=== PATIENT | male | born 1965 | race Caucasian/White ===

== ENCOUNTER 2023-05-05 05:23 | Observation (INO) | payer OTHER ==
[2023-04-29 16:10] VITALS: BMI 26.4
[~2023-05-05 05:23] MED LIST: BUPIVACAINE HCL/PF 0.5% (5 MG/ML) 30 ML VIAL IJ ONE
[2023-05-05] MEDS ORDERED: GENTAMICIN SO4 80 MG/2 ML VIAL ONE ×2 (12:27→13:35)
[2023-05-05] MEDS ORDERED: VANCOMYCIN 1,000 MG VIAL (RESTRICTED TO ID ONLY) ONE (12:28)
[2023-05-05] MEDS ORDERED: AMPHOTERICIN B LIPOSOMAL IVPB ONE (13:00)
[2023-05-05] MEDS ORDERED: SODIUM CHLORIDE IVPB ONE (13:00)
[2023-05-05] MEDS ORDERED: GENTAMICIN SO4 80 MG/2 ML VIAL IVPB ONE (13:20)
[2023-05-05] MEDS ORDERED: VANCOMYCIN 1,000 MG VIAL (RESTRICTED TO ID ONLY) IVPB ONE (13:35)
[2023-05-05] MEDS ORDERED: ceFAZolin SODIUM 1 GM VIAL IVPB ONE (14:33)
[2023-05-05] MEDS ORDERED: MIDAZOLAM HCL 2 MG/2 ML SINGLE DOSE VIAL ONE (15:07)
[2023-05-05] MEDS ORDERED: PROPOFOL 40 ML ONE (15:07)
[2023-05-05] MEDS ORDERED: SUCCINYLCHOLINE CHLORIDE 200 MG/10 ML SYRINGE ONE (15:07)
[2023-05-05] MEDS ORDERED: HYDROmorphone HCl 2 MG/ML VIAL ONE (15:27)
[2023-05-05] MEDS ORDERED: BUPIVACAINE HCL/PF 0.25% (2.5MG/ML) 10 ML VIAL ONE (15:27)
[2023-05-05] MEDS ORDERED: LIDOCAINE HCL 2% (20ML MULTI-DOSE VIAL) ONE (15:28)
[2023-05-05] MEDS ORDERED: DEXAMETHASONE SOD PHOSPHATE 4 MG/1 ML VIAL ONE (15:37)
[2023-05-05] MEDS ORDERED: ONDANSETRON 4 MG/2 ML VIAL ONE (15:38)
[2023-05-05] MEDS ORDERED: KETAMINE HCL 500 MG/10 ML VIAL ONE (16:20)
[2023-05-05] MEDS ORDERED: ACETAMINOPHEN INJECTION 100 ML IVPB ONE (16:23)
[2023-05-05] MEDS ORDERED: LIDOCAINE HCL/PF 2% SDV 5ML VIAL INF ONE (16:35)
[2023-05-05] MEDS ORDERED: BUPIVACAINE HCL/PF 0.5% (5 MG/ML) 30 ML VIAL IJ ONE (16:35)
[2023-05-05] MEDS ORDERED: IBUPROFEN 400 MG TABLET (FP) PO ONE ×2 (18:45→19:15)
[2023-05-05] MEDS ORDERED: ACETAMINOPHEN 325 MG TABLET (FP) PO PRN (23:07)
[2023-05-05] MEDS: ACETAMINOPHEN 325 MG TABLET (FP) PO PRN (23:33)
[2023-05-06] MEDS: PANTOPRAZOLE 20 MG TABLET PO SCH (09:36)
[2023-05-06 10:25] LABS: HEMATOCRIT 36.8 % (35.4-49); HEMOGLOBIN 12.1 GM/dL (11.7-16.9); MCH 28.1 pg (25.7-33.7); MCHC 32.9 g/dl (32.0-35.9); MEAN CELL VOLUME 85.6 fl (80-96); MEAN PLT VOLUME 9.2 fl (7.5-11.1); PLATELET COUNT 196 10^3/uL (134-434); RDW 13.4 % (11.9-15.9); WHITE BLOOD COUNT 15.2 K/mm3 (4.0-10.0)
[2023-05-06 11:02] LABS: POTASSIUM 4.3 mmol/L (3.5-5.1)
[2023-05-06 11:04] LABS: ALBUMIN 3.1 g/dl (3.4-5.0); BLOOD UREA NITROGEN 17.6 mg/dL (7-18); CALCIUM 8.6 mg/dL (8.5-10.1)
[2023-05-06 11:07] LABS: CREATININE 1.1 mg/dL (0.55-1.3)
[2023-05-06 11:09] LABS: BILIRUBIN,TOTAL 0.4 mg/dL (0.2-1); TOT PROT 5.8 g/dl (6.4-8.2)
[2023-05-06] MEDS: CEFTRIAXONE 1 GM in DEXTROSE 5%-WATER - 50 ML IVPB SCH (18:56)
[2023-05-06 22:26] VITALS: RESP 20
[2023-05-07] MEDS: ACETAMINOPHEN 325 MG TABLET (FP) PO PRN (01:30)
[2023-05-07] MEDS ORDERED: oxyCODONE HCL 5 MG TABLET PO ONE (02:21)
[2023-05-07] MEDS: PANTOPRAZOLE 20 MG TABLET PO SCH (10:57)
[2023-05-07] MEDS: CEFTRIAXONE 1 GM in DEXTROSE 5%-WATER - 50 ML IVPB SCH (10:57)
[2023-05-07 13:10] LABS: HEMOGLOBIN 11.8 GM/dL (11.7-16.9); MCH 28.4 pg (25.7-33.7); MCHC 33.6 g/dl (32.0-35.9); MEAN CELL VOLUME 84.5 fl (80-96); MEAN PLT VOLUME 8.9 fl (7.5-11.1); PLATELET COUNT 160 10^3/uL (134-434); RBC 4.15 M/mm3 (4.00-5.60); RDW 13.8 % (11.9-15.9); WHITE BLOOD COUNT 12.5 K/mm3 (4.0-10.0)
[2023-05-07 13:17] LABS: ALBUMIN 3.3 g/dl (3.4-5.0); BLOOD UREA NITROGEN 17.1 mg/dL (7-18); CALCIUM 8.6 mg/dL (8.5-10.1); MAGNESIUM 2.2 mg/dL (1.8-2.4)
[2023-05-07 13:22] LABS: BILIRUBIN,TOTAL 0.2 mg/dL (0.2-1); TOT PROT 6.4 g/dl (6.4-8.2)
[2023-05-07 14:43] VITALS: BP 142/83; PULSE 74; TEMP 97.3
== END 2023-05-07 15:02 | disposition home or self-care (01) ==
LOC: SUATTDRO 05:23 → JASU-SURG 05:23 → J8W 21:05
PROVIDERS: ADMIT Family Medicine; ATTEND Family Medicine
PROC: 3E03329 Introduction of Other Anti-infective into Peripheral Vein, Percutaneous Approach (ICD-10-PCS; 2023-05-05)
PROC: 0VUS0JZ Supplement Penis with Synthetic Substitute, Open Approach (ICD-10-PCS; principal; 2023-05-05 14:00)
DX: N52.9 Male erectile dysfunction, unspecified (principal); N48.6 Induration penis plastica; K21.9 Gastro-esophageal reflux disease without esophagitis; F90.9 Attention-deficit hyperactivity disorder, unspecified type; I10 Essential (primary) hypertension
CPT/HCPCS: 36415; 80053; 83735; 85027; 94760; C1813; G0378